=== PATIENT | male | born 2000 | race Caucasian/White ===

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

== ENCOUNTER 2020-04-22 20:24 | Emergency (ER) | payer MEDICAID ==
[~2020-04-22] VITALS: Ht 165.1 cm; Wt 104.3 kg
[2020-04-22 20:30] VITALS: BP_SYST 155
--- NOTE | 2020-04-22 20:30 | NUR ---
Patient triaged and placed in waiting room. VSS and patient appears in no acute distress at this time. Accompanied by mother, awaiting available bed, and MD notified of need for MSE.
--- NOTE | 2020-04-22 21:55 | NUR ---
Patient to ER bed 7 to gown for evaluation. Side rails up.
--- NOTE | 2020-04-22 21:56 | NUR ---
PT AAO AND AMBULATORY C/O CHEST WALL PAIN THAT STARTED EARLIER TODAY. PT DENIES SOB, NAUSEA, OR VOMITING. PT REPORTS THAT HE WAS SEEN AT [facility] EARLIER TODAY AND HAD FULL WORK UP ACCORDING TO PT. PT CAME TO [facility] FOR A SECOND OPINION. V/S CURRENTLY STABLE. PT HAS NO S/S OF ANY DISTRESS. PT REPORTS 3-4/10 PAIN SCALE.
--- NOTE | 2020-04-22 21:59 | NUR ---
ER Dr. CRAVEN at bedside examining patient.
--- NOTE | 2020-04-22 22:15 | NUR ---
LABS DRAWN PER RN, SENT TO LAB FOR ANALYSIS
[2020-04-22 22:29] LABS: BASOPHILS # (AUTO) 0.1 K/uL (0.0-0.2); BASOPHILS % (AUTO) 0.7 % (0.0-2.0); EOSINOPHILS # (AUTO) 0.1 K/uL (0.0-0.4); EOSINOPHILS % (AUTO) 1.5 % (0.0-4.0); HEMATOCRIT 41.3 % (36-54); HEMOGLOBIN 14.3 g/dL (14.0-18.0); MEAN CORPUSCULAR HEMOGLOBIN 30 pg (27-31); MEAN CORPUSCULAR HGB CONC 35 % (32-36); MEAN CORPUSCULAR VOLUME 88 fL (79.0-98.0); MONOCYTES # (AUTO) 0.6 K/uL (0.0-1.0); MONOCYTES % (AUTO) 7.8 % (1.7-9.3); PLATELET COUNT (AUTO) 262 K/uL (130-430); RED CELL DISTRIBUTION WIDTH 13.4 % (9.0-15.0); WHITE BLOOD COUNT (AUTO) 7.8 K/uL (4.5-11.0)
[2020-04-22 22:39] LABS: CALCIUM 8.8 mg/dL (8.4-11.0); CREATININE 0.97 mg/dL (0.55-1.30); POTASSIUM 3.7 mmol/L (3.5-5.1)
[2020-04-22 22:44] LABS: TOTAL BILIRUBIN 0.3 mg/dL (0.0-1.0)
[2020-04-22] MEDS ORDERED: LevALBUTEROL HCL 1.25 MG/0.5 ML *CONC.* VIAL.NEB (XOPENEX CONC.) INH ONE (23:00)
[2020-04-22] MEDS ORDERED: MAG HYDROX/AL HYDROX/SIMETH 30 ML, DICYCLOMINE HCL 20 MG, LIDOCAINE VISCOUS 2% 15ML (PO... PO ONE ×3 (23:00)
[2020-04-22] MEDS ORDERED: IPRATROPIUM BROM 0.5 MG/2.5 ML VIAL.NEB (ATROVENT) INH ONE (23:00)
--- NOTE | 2020-04-22 23:05 | NUR ---
PT MED NEB ADMINISTERED PER R.T. PT TOLERATING WELL.
[2020-04-23] MEDS ORDERED: PANTOPRAZOLE SODIUM 40 MG TAB PO ONE
--- NOTE | 2020-04-23 | NUR ---
Patient given written and verbal discharge instructions and verbalizes understanding. DR. MERISSA COBURN MD discussed with patient the results and treatment provided. Patient in stable condition. ID arm band removed. Rx of PROTONIX given. Patient educated on pain management and to follow up with PMD. Pain Scale 2/10. Opportunity for questions provided and answered. Medication side effect fact sheet provided.
[2020-04-23 00:05] VITALS: BP_SYST 155
[2020-04-23] MEDS ORDERED: PANTOPRAZOLE SODIUM 40 MG TAB ONE (00:17)
== END 2020-04-23 | disposition home or self-care (01) ==
LOC: SED 20:24
DX: R07.89 Other chest pain (principal); J45.909 Unspecified asthma, uncomplicated; Z86.73 Personal history of transient ischemic attack (TIA), and cerebral infarction without residual deficits
CPT/HCPCS: 36415; 80053; 83690; 84484; 85025; 93005; 94640; 99284; J2001; J7612

== ENCOUNTER 2020-04-23 20:35 | Emergency (ER) | payer MEDICAID ==
[~2020-04-23] VITALS: Ht 165.1 cm; Wt 104.3 kg
--- NOTE | 2020-04-23 20:36 | NUR ---
Placed in room 4 . Placed on threat monitoring analyst, blood pressure machine and pulse oximeter. To gown for exam. Side rails up. Report given to SYED ESCOBAR.
[2020-04-23 20:37] VITALS: BP_SYST 131
--- NOTE | 2020-04-23 20:40 | NUR ---
ER at bedside examining patient.
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
[2020-04-23 21:27] VITALS: BP_SYST 131
--- NOTE | 2020-04-23 21:27 | NUR ---
Patient given written and verbal discharge instructions and verbalizes understanding. ER MD discussed with patient the results and treatment provided. Patient in stable condition. ID arm band removed. No rx given. Patient educated on pain management and to follow up with PMD. Pain Scale 0/10 Opportunity for questions provided and answered.
== END 2020-04-23 21:27 | disposition home or self-care (01) ==
LOC: SED 20:35
DX: R07.89 Other chest pain (principal); J45.909 Unspecified asthma, uncomplicated; Z86.73 Personal history of transient ischemic attack (TIA), and cerebral infarction without residual deficits
CPT/HCPCS: 93005; 99283

== ENCOUNTER 2020-04-23 22:56 | Emergency (ER) | payer MEDICAID ==
[~2020-04-23] VITALS: Ht 165.1 cm; Wt 104.3 kg
[2020-04-23 23:00] VITALS: BP_SYST 132
[2020-04-23] MEDS ORDERED: IPRATROPIUM BROM 0.5 MG/2.5 ML VIAL.NEB (ATROVENT) INH ONE (23:30)
[2020-04-23] MEDS ORDERED: LevALBUTEROL HCL 1.25 MG/0.5 ML *CONC.* VIAL.NEB (XOPENEX CONC.) INH ONE (23:30)
[2020-04-24] MEDS ORDERED: LevALBUTEROL HCL 1.25 MG/0.5 ML *CONC.* VIAL.NEB (XOPENEX CONC.) INH ONE (00:15)
[2020-04-24 01:19] VITALS: BP_SYST 129
== END 2020-04-24 01:18 | disposition home or self-care (01) ==
LOC: SED 22:56
DX: F41.9 Anxiety disorder, unspecified (principal); R06.00 Dyspnea, unspecified; J45.909 Unspecified asthma, uncomplicated; Z86.73 Personal history of transient ischemic attack (TIA), and cerebral infarction without residual deficits
CPT/HCPCS: 94150 ×2; 94640 ×2; 99284; J7612

== ENCOUNTER 2020-05-07 02:58 | Emergency (ER) | payer MEDICAID ==
--- NOTE | 2020-05-07 07:26 | NUR ---
SEE DOWNTIME CHARTING
[2020-05-07 11:26] LABS: BASOPHILS % (AUTO) 0.4 % (0.0-2.0); EOSINOPHILS # (AUTO) 0.1 K/uL (0.0-0.4); EOSINOPHILS % (AUTO) 1.4 % (0.0-4.0); HEMATOCRIT 43.4 % (36-54); HEMOGLOBIN 14.8 g/dL (14.0-18.0); LYMPHOCYTES # (AUTO) 2.2 K/uL (1.0-5.5); LYMPHOCYTES % (AUTO) 21.4 % (20.5-51.5); MEAN CORPUSCULAR HEMOGLOBIN 30 pg (27-31); MEAN CORPUSCULAR HGB CONC 34 % (32-36); MEAN CORPUSCULAR VOLUME 88 fL (79.0-98.0); MONOCYTES # (AUTO) 0.7 K/uL (0.0-1.0); MONOCYTES % (AUTO) 6.5 % (1.7-9.3); NEUTROPHILS # (AUTO) 7.2 K/uL (1.8-7.7); NEUTROPHILS % (AUTO) 70.3 % (40.0-70.0); PLATELET COUNT (AUTO) 260 K/uL (130-430); RED BLOOD CELL COUNT(AUTO) 4.94 MIL/uL (4.2-6.2); RED CELL DISTRIBUTION WIDTH 13.1 % (9.0-15.0); WHITE BLOOD COUNT (AUTO) 10.3 K/uL (4.5-11.0)
[2020-05-07 11:33] LABS: POTASSIUM 3.7 mmol/L (3.5-5.1); SODIUM SERUM 141 mmol/L (136-145)
[2020-05-07 11:34] LABS: ANION GAP 9 (5-15); ASPARTATE AMINOTRANSFERASE 16 U/L (10-37); CALCIUM 8.7 mg/dL (8.4-11.0); CHLORIDE 104 mmol/L (98-107); CREATININE 0.93 mg/dL (0.55-1.30); GFR AFRICAN AMERICAN 133 mL/min (>90); GLUCOSE 105 mg/dL (70-99); TOTAL BILIRUBIN 0.4 mg/dL (0.0-1.0); UREA NITROGEN, BLOOD 19 mg/dL (8-21)
[2020-05-07 11:35] LABS: ALANINE AMINOTRANSFERASE 20 U/L (12-78); ALBUMIN 3.7 g/dL (3.4-4.8); ALCOHOL, BLOOD < 3 mg/dL (<10)
== END 2020-05-07 04:50 | disposition home or self-care (01) ==
LOC: SED 02:58
DX: R07.89 Other chest pain (principal); F41.9 Anxiety disorder, unspecified; F43.9 Reaction to severe stress, unspecified; J45.909 Unspecified asthma, uncomplicated
CPT/HCPCS: 36415; 80053; 83880; 84484; 85025; 93005; 96360; 96361; 99284; G0482; J7030

== ENCOUNTER 2020-05-20 19:29 | Emergency (ER) | payer MEDICAID ==
[~2020-05-20] VITALS: Ht 170.2 cm; Wt 108.9 kg
[2020-05-20 19:35] VITALS: BP_SYST 130
[2020-05-20 22:24] VITALS: BP_SYST 143
== END 2020-05-20 22:25 | disposition home or self-care (01) ==
LOC: SED 19:29
DX: M79.673 Pain in unspecified foot (principal)
CPT/HCPCS: 99283

== ENCOUNTER 2020-05-28 18:48 | Emergency (ER) | payer MEDICAID ==
[~2020-05-28] VITALS: Ht 170.2 cm; Wt 108.9 kg
[2020-05-28 18:48] VITALS: BP_SYST 133
--- NOTE | 2020-05-28 18:48 | NUR ---
BROUGHT IN BY [facility] AND TRIAGED, SEEN AND EVALUATED BY DR ALBERTS UPON ARRIVAL. VSS, PT ESCORTED OUT TO WAITING ROOM
--- NOTE | 2020-05-28 18:50 | NUR ---
Pt brought by ambulance, A&Ox4, pt presents to ER with R foor pain after kicking a door few weeks ago, pt also c/o mild chestwall pain, pt ambulates, respirations even and unlabored, cap refill <3.
--- NOTE | 2020-05-28 19:20 | NUR ---
Dr Calvillo evaluating patient in the triage room
[2020-05-28 19:56] LABS: BASOPHILS % (AUTO) 0.5 % (0.0-2.0); EOSINOPHILS # (AUTO) 0.2 K/uL (0.0-0.4); EOSINOPHILS % (AUTO) 2.2 % (0.0-4.0); HEMATOCRIT 41.9 % (36-54); HEMOGLOBIN 14.4 g/dL (14.0-18.0); LYMPHOCYTES # (AUTO) 2.5 K/uL (1.0-5.5); LYMPHOCYTES % (AUTO) 30.9 % (20.5-51.5); MEAN CORPUSCULAR HEMOGLOBIN 31 pg (27-31); MEAN CORPUSCULAR HGB CONC 34 % (32-36); MEAN CORPUSCULAR VOLUME 89 fL (79.0-98.0); MONOCYTES # (AUTO) 0.7 K/uL (0.0-1.0); MONOCYTES % (AUTO) 8.9 % (1.7-9.3); NEUTROPHILS # (AUTO) 4.7 K/uL (1.8-7.7); NEUTROPHILS % (AUTO) 57.5 % (40.0-70.0); PLATELET COUNT (AUTO) 275 K/uL (130-430); RED BLOOD CELL COUNT(AUTO) 4.71 MIL/uL (4.2-6.2); RED CELL DISTRIBUTION WIDTH 13.9 % (9.0-15.0); WHITE BLOOD COUNT (AUTO) 8.1 K/uL (4.5-11.0)
[2020-05-28 20:16] LABS: ANION GAP 6 (5-15); CHLORIDE 104 mmol/L (98-107); CREATININE 0.83 mg/dL (0.55-1.30); GLUCOSE 91 mg/dL (70-99); SODIUM SERUM 139 mmol/L (136-145); UREA NITROGEN, BLOOD 16 mg/dL (8-21)
[2020-05-28 20:21] LABS: GFR AFRICAN AMERICAN 152 mL/min (>90)
--- NOTE | 2020-05-28 21:22 | NUR ---
Report given to Theresa ESCOBAR
--- NOTE | 2020-05-28 21:31 | NUR ---
Patient given verbal discharge instructions and verbalizes understanding. ER MD discussed with patient the results and treatment provided. Patient in stable condition. ID arm band removed. . Patient educated on pain management and to follow up with PMD. Pain Scale 2/10 .Pt did not take discharge ppwk Opportunity for questions provided and answered. Medication side effect fact sheet provided.
[2020-05-28 21:32] VITALS: BP_SYST 133
== END 2020-05-28 21:31 | disposition home or self-care (01) ==
LOC: SED 18:48
DX: S93.124A Dislocation of metatarsophalangeal joint of right lesser toe(s), initial encounter (principal); R07.89 Other chest pain; J45.909 Unspecified asthma, uncomplicated; W22.8XXA Striking against or struck by other objects, initial encounter; Y93.89 Activity, other specified; Y92.89 Other specified places as the place of occurrence of the external cause; Y99.8 Other external cause status
CPT/HCPCS: 36415; 71045; 80048; 84484; 85025; 93005; 99285

== ENCOUNTER 2020-05-30 13:53 | Emergency (ER) | payer MEDICAID ==
[~2020-05-30] VITALS: Ht 165.1 cm; Wt 104.3 kg
--- NOTE | 2020-05-30 14:00 | NUR ---
Pt triaged in ambulance outside, awaiting open bed at this time.
[2020-05-30 14:03] VITALS: BP_SYST 135
--- NOTE | 2020-05-30 14:35 | NUR ---
ER at bedside examining patient.
--- NOTE | 2020-05-30 17:40 | NUR ---
Pt brought to ER for R foot pain 03/28, pt states he dislocated toe about one month ago. Since the dislocation pt has experienced pain, currently resting in gurney in ambulance, VSS
[2020-05-30] MEDS ORDERED: ACETAMINOPHEN 500 MG TABLET PO ONE (17:45)
[2020-05-30 19:29] VITALS: BP_SYST 135
--- NOTE | 2020-05-30 19:29 | NUR ---
Patient given written and verbal discharge instructions and verbalizes understanding. ER MD discussed with patient the results and treatment provided. Patient in stable condition. ID arm band removed. No Rx given. Patient educated on pain management and to follow up with PMD. Pain Scale 2/10. Opportunity for questions provided and answered. Medication side effect fact sheet provided.
== END 2020-05-30 19:29 | disposition home or self-care (01) ==
LOC: SED 13:53
DX: G89.29 Other chronic pain (principal); M79.671 Pain in right foot; J45.909 Unspecified asthma, uncomplicated; Z86.73 Personal history of transient ischemic attack (TIA), and cerebral infarction without residual deficits
CPT/HCPCS: 99283

== ENCOUNTER 2021-12-13 00:29 | Emergency (ER) | payer MEDICAID ==
[~2021-12-13] VITALS: Ht 165.1 cm; Wt 108.0 kg
[2021-12-13 00:30] VITALS: BP_SYST 140
--- NOTE | 2021-12-13 00:30 | NUR ---
Patient to ER bed 05 to gown for evaluation. Side rails up. Report given to SHAWN Hendrickson
--- NOTE | 2021-12-13 01:18 | NUR ---
Pt C/o emotional upset States that he "got in an argument with mom and needed somewhere cool off" Pt resting comfortably at bed VSS Verbally responsive Able to make needs known Will continue to monitor
--- NOTE | 2021-12-13 01:19 | NUR ---
Pt left before being seen by Pt states he is going home with mom Pt seen exiting ED @1304
== END 2021-12-14 01:17 | disposition left against medical advice (07) ==
LOC: SED 00:29
DX: I10 Essential (primary) hypertension (principal); Z53.21 Procedure and treatment not carried out due to patient leaving prior to being seen by health care provider

== ENCOUNTER 2022-02-19 20:19 | Emergency (ER) | payer MEDICAID ==
[~2022-02-19] VITALS: Ht 167.6 cm; Wt 86.2 kg
[2022-02-19 20:32] VITALS: BP_SYST 138
--- NOTE | 2022-02-19 20:40 | NUR ---
PT HERE C/O RT MIDDLE TOE PAIN AND SWELLING X7 MOS S/P KICKING DOOR. PT STATED THAT HE START HAVING PAIN 4 DAYS AGO. PMH:AUSTISM,BIPOLAR,ASTHMA PT AAOX4, NO SOB NOTED AND NOT IN ANY DISTRESS AT THIS TIME.
--- NOTE | 2022-02-19 20:49 | NUR ---
PT SEEN AND EXAMINE BY DR. DUEÑAS.
--- NOTE | 2022-02-19 21:55 | NUR ---
DR. BALDERAS TALKING TO PATIENT FOR RE EVAL.
--- NOTE | 2022-02-19 22:05 | NUR ---
DC PT HOME AAOX4, NO SOB NOTED AND NOT IN ANY DISTRES. DC INSTRUCTION AND PRESCRIPTION WERE GIVEN TO PT. ALSO INSTRUCTED TO F/U WITH HIS PCP. HE VERBALIZED UNDERSTANDING. PT OUT OF DEPT WITH STEADY GAIT
== END 2022-02-19 22:05 | disposition home or self-care (01) ==
LOC: SED 20:19
DX: S93.514A Sprain of interphalangeal joint of right lesser toe(s), initial encounter (principal); J45.909 Unspecified asthma, uncomplicated; Z79.899 Other long term (current) drug therapy; W22.8XXA Striking against or struck by other objects, initial encounter; Y93.89 Activity, other specified; Y92.89 Other specified places as the place of occurrence of the external cause; Y99.8 Other external cause status
CPT/HCPCS: 99283

== ENCOUNTER 2022-09-25 18:31 | Emergency (ER) | payer MEDICAID ==
[~2022-09-25] VITALS: Ht 165.1 cm; Wt 110.7 kg
--- NOTE | 2022-09-25 18:35 | NUR ---
Pt brought by self, A&Ox4, pt presents to ER with R second toe pain for few weeks, pt denies recent trauma, skin pink and war, cap refill <3.
[2022-09-25 18:36] VITALS: BP_SYST 154
--- NOTE | 2022-09-25 18:46 | NUR ---
Dr Richard evaluating patient in the triage room
[2022-09-25] MEDS ORDERED: LIDOCAINE 1% 10 MG/ML, 20 ML MDV INJ ONE (19:30)
[2022-09-25 22:05] VITALS: BP_SYST 142
--- NOTE | 2022-09-25 22:05 | NUR ---
Patient given written and verbal discharge instructions and verbalizes understanding. ER MD discussed with patient the results and treatment provided. Patient in stable condition. ID arm band removed. Patient educated on pain management and to follow up with PMD. Pain Scale 0/1 Opportunity for questions provided and answered.
== END 2022-09-25 22:05 | disposition home or self-care (01) ==
LOC: SED 18:31
DX: S92.411A Displaced fracture of proximal phalanx of right great toe, initial encounter for closed fracture (principal); J45.909 Unspecified asthma, uncomplicated; Z79.899 Other long term (current) drug therapy; W22.8XXA Striking against or struck by other objects, initial encounter; Y93.89 Activity, other specified; Y92.89 Other specified places as the place of occurrence of the external cause; Y99.8 Other external cause status
CPT/HCPCS: 99284; 28515; 73630; 73660; J2001

== ENCOUNTER 2022-12-03 16:10 | Emergency (ER) | payer MEDICAID ==
[~2022-12-03] VITALS: Ht 165.1 cm; Wt 108.9 kg
--- NOTE | 2022-12-03 16:10 | NUR ---
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
[2022-12-03 16:14] VITALS: BP_SYST 140
--- NOTE | 2022-12-03 16:15 | NUR ---
Placed in room [address] monitor, blood pressure machine and pulse oximeter. To gown for exam. Side rails up. Report given to SHAWN MARINELLI.
--- NOTE | 2022-12-03 16:17 | NUR ---
PT BIBA FROM HOME AFTER GETTING INTO AN ARGUMENT WITH HIS MOTHER AND STATING THAT HE WANTS TO CHANGE HIS PSYCH MEDS. PT DENIES SI/HI. ARRIVES CALM AND COOPERATIVE. STATES THAT HE IS A [facility] CLIENT WITH A HX OF AUTISM AND BIPOLAR. PT STATES HE LIVES WITH HIS MOTHER. VSS
--- NOTE | 2022-12-03 16:25 | NUR ---
Dr Richard evaluating patient at bedside
--- NOTE | 2022-12-03 17:10 | NUR ---
t yelling, crying and hitting the bed, states he feels upset, states he does not want to go home.
--- NOTE | 2022-12-03 17:15 | NUR ---
Pt screaming and slapping himself, anxious, states he is upset, Dr Richard notified.
[2022-12-03] MEDS ORDERED: LORazepam 2 MG/ML VIAL ONE (17:25)
[2022-12-03] MEDS ORDERED: HALOPERIDOL LACTATE 5 MG/ML VIAL ONE (17:26)
[2022-12-03] MEDS ORDERED: DIPHENHYDRAMINE INJ 50 MG/ML VIAL ONE (17:26)
--- NOTE | 2022-12-03 17:29 | NUR ---
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
--- NOTE | 2022-12-03 17:40 | NUR ---
Security at bedside
[2022-12-03] MEDS ORDERED: LORazepam 2 MG/ML VIAL IM ONE (18:15)
[2022-12-03] MEDS ORDERED: DIPHENHYDRAMINE INJ 50 MG/ML VIAL IM ONE (18:15)
[2022-12-03] MEDS ORDERED: HALOPERIDOL LACTATE 5 MG/ML VIAL IM ONE (18:15)
[2022-12-03 18:26] LABS: BASOPHILS % (AUTO) 0.6 % (0.0-2.0); EOSINOPHILS # (AUTO) 0.1 K/uL (0.0-0.4); EOSINOPHILS % (AUTO) 1.5 % (0.0-4.0); HEMATOCRIT 39.8 % (36-54); HEMOGLOBIN 13.5 g/dL (14.0-18.0); LYMPHOCYTES # (AUTO) 1.6 K/uL (1.0-5.5); LYMPHOCYTES % (AUTO) 21.6 % (20.5-51.5); MEAN CORPUSCULAR HEMOGLOBIN 32 pg (27-31); MEAN CORPUSCULAR HGB CONC 34 % (32-36); MEAN CORPUSCULAR VOLUME 96 fL (79.0-98.0); MONOCYTES # (AUTO) 0.7 K/uL (0.0-1.0); MONOCYTES % (AUTO) 9.3 % (1.7-9.3); PLATELET COUNT (AUTO) 212 K/uL (130-430); RED BLOOD CELL COUNT(AUTO) 4.16 MIL/uL (4.2-6.2); RED CELL DISTRIBUTION WIDTH 12.5 % (9.0-15.0); WHITE BLOOD COUNT (AUTO) 7.5 K/uL (4.8-10.8)
[2022-12-03 18:47] LABS: CALCIUM 8.8 mg/dL (8.4-11.0); CREATININE 0.98 mg/dL (0.55-1.30)
[2022-12-03 18:52] LABS: ALBUMIN 3.3 g/dL (3.4-4.8); TOTAL BILIRUBIN 0.3 mg/dL (0.0-1.0)
--- NOTE | 2022-12-03 19:05 | NUR ---
Pt is calm and cooperative at this time, no s/s of distress , pt no longer exhibitine self- harm or danger to staff, will cont to monitor.
--- NOTE | 2022-12-03 19:14 | NUR ---
Report given to Ken ESCOBAR
--- NOTE | 2022-12-03 19:14 | NUR ---
SPOKE WITH BRIAN CROFT AT [facility]URSING HOME, STATES STAFF WILL PICK HIM UP AFTER 8:30PM
--- NOTE | 2022-12-03 20:05 | NUR ---
Patient given written and verbal discharge instructions and verbalizes understanding. ER MD discussed with patient the results and treatment provided. Patient in stable condition. ID arm band removed.
[2022-12-03 20:07] VITALS: BP_SYST 137
== END 2022-12-03 20:07 | disposition home or self-care (01) ==
LOC: SED 16:10
DX: Z00.00 Encounter for general adult medical examination without abnormal findings (principal); R46.89 Other symptoms and signs involving appearance and behavior; J45.909 Unspecified asthma, uncomplicated
CPT/HCPCS: 99284; 80053; 85025; 36415; 96372; J1200; J1630; J2060

== ENCOUNTER 2023-07-01 08:43 | Emergency (ER) | payer MEDICAID ==
[~2023-07-01] VITALS: Ht 160 cm; Wt 108.9 kg
[2023-07-01 08:56] VITALS: BP_SYST 135; PULSE 82; RESP 18; TEMP 98.3; O2SAT 96
[2023-07-01 09:43] VITALS: BP_SYST 135; PULSE 97; RESP 18; TEMP 98.7; O2SAT 100
== END 2023-07-01 09:43 | disposition home or self-care (01) ==
LOC: SED 08:43
DX: F41.9 Anxiety disorder, unspecified (principal); J45.909 Unspecified asthma, uncomplicated; I10 Essential (primary) hypertension; Z79.899 Other long term (current) drug therapy
CPT/HCPCS: 99281